=== PATIENT | female | born 1970 | race Caucasian/White ===

== ENCOUNTER 2019-09-16 07:54 | Observation (INO) | payer OTHER, SELFPAY ==
[2019-09-16] VITALS (24 sets, daily range): BP systolic 94–130; BP diastolic 55–85; PULSE 60–107; RESP 10–24; TEMP 36.2–37.1; O2SAT 93–100; BMI 23.3
--- NOTE | 2019-09-16 | PATH_ITS ---
[facility] Accession Number: [id number] . 01 Material submitted: . appendix - APPENDIX . 02 Diagnosis: Appendix, Appendectomy: Acute suppurative appendicitis with serositis. Negative for dysplasia and malignancy. [facility] 09/18/2019 1246 Local . 02 Electronically signed: . Mildred Hair MD, Pathologist NPI- [id number] . 01 Gross description: . Received in formalin, labeled appendix, is a piece of cecum (3.0 x 1.7 x 1.4 cm) with an attached intact appendix (length-5.2 cm, diameter-0.7 cm) with fischer-pink, smooth shiny serosa. The resection margin is received opened and has a staple line. The cecal mucosa is fischer with normal folds and is otherwise unremarkable. The mesoappendix (up to 1.9 cm in depth) is present. The lumen contains fischer solid-soft material. The appendiceal wall is up to 0.3 cm thick. No nodules, masses or lesion are identified. The resection margin is inked blue. Section code: (A1) cecum, agency sales representative serial section and appendiceal orifice; (A2, A3) agency sales representative serial sections; (A4) one-half of the bivalved tip. ([id number]) /MRV 09/17/2019 1520 Local . 02 Pathologist provided ICD-10: K35.80 . 02 CPT . 844041 Performed at: 01 [facility] [address] [id number] MD Tim Child MD Phone: [phone] Performed at: 02 [facility] [address] [place], [place] [id number] MD Mildred Hair MD Phone: [phone]
--- NOTE | 2019-09-16 07:58 | ED_ITS ---
HPI - General Adult General Chief complaint: Abdominal Pain Stated complaint: sharppain across midd stomach/ diarrhea Time Seen by Provider: 09/16/19 07:55 Source: patient Mode of arrival: Ambulatory Limitations: no limitations History of Present Illness HPI narrative: 49-year-old female. History of breast cancer. Last chemotherapy/radiation was greater than 2 months ago. States that yesterday she was at her normal state health other than feeling very tired and last evening developed nausea vomiting and diarrhea. Has had multiple episodes of each. Has generalized sharp abdominal pain that is not changed with the vomiting or diarrhea. No sick contacts. No recent antibiotics. No fevers. Has not tried anything for symptoms. States she is very nauseous. No urinary symptoms. Has had a hysterectomy and bilateral mastectomy. Left bedside does not have symptoms Related Data Home Medications Medication Instructions Recorded Confirmed fluoxetine 20 mg PO QDAY #0 02/21/16 levonorgestrel [Mirena] 52 mg INTRAU #0 02/21/16 magnesium chloride [Slow-Mag] 1 ect PO #0 02/21/16 multivitamin [Multiple Vitamins] 1 tab PO QDAY #0 02/21/16 tizanidine 4 mg PO PRN PRN #0 02/21/16 Previous Rx's Medication Instructions Recorded nitrofurantoin monohyd/m-cryst 100 mg PO BIDCC #10 cap 02/21/16 [Macrobid] Allergies Allergy/AdvReac Type Severity Reaction Status Date / Time No Known Allergies Allergy Uncoded 09/16/19 08:04 Review of Systems Constitutional Constitutional: Denies fever(s) Cardiovascular Cardiovascular: Denies chest pain Respiratory Respiratory: Denies cough Gastrointestinal Gastrointestinal: Reports abdominal pain, Reports diarrhea, Reports nausea and R eports vomiting Genitourinary Comments: No dysuria Musculoskeletal Musculoskeletal: Denies deformity Integumentary/Breasts Skin/Breast: Denies lesions and Denies rash Neurologic Neurologic: Denies behavioral changes Psychiatric Psychiatric: Denies behavioral changes Hematologic/Lymphatic Hematologic/Lymphatic: Denies easy bleeding and Denies easy bruising Patient History Medical History (Updated 09/16/19 @ 09:29 by Jaime Rosario DO) Breast cancer (Acute) Surgical History (Updated 09/16/19 @ 09:28 by Jaime Rosario DO) H/O bilateral mastectomy (Acute) Social History Smoking Status: Never smoker Exam Initial Vital Signs Initial Vital Signs: Vital Signs Temperature 97.2 F L 09/16/19 08:04 Pulse Rate 74 09/16/19 08:04 Respiratory Rate 16 09/16/19 08:04 Blood Pressure 130/85 09/16/19 08:04 Pulse Oximetry 98 09/16/19 08:04 Const General: cooperative and No comfortable (Uncomfortable) Limitations: mental status not altered HENTX Head: normal to inspection and normocephalic Chest Other: Bilateral mastectomy Resp Effort & Inspection: normal respiratory effort Auscultation: clear to auscultation bilaterally Cardio Rate: regular rate Rhythm: regular rhythm GI Inspection: non-distended Palpation: soft and tender (Right-sided upper right-sided lower abdomen tenderness) Skin Lesions: no lesions Rashes: no rashes Neuro General: patient alert, patient awake and patient oriented x3 Cognition: normal cognition Speech: speech normal Extrem General: normal to inspection and capillary refill normal Psych Appearance: grossly normal and well kempt Scores GCS [place] coma scale eye opening: Spontaneous [place] coma scale verbal response: Orientated [place] coma scale motor response: Obey commands Naye coma scale total score: 15 Course Orders Ordered: ED Orders 09/16/19 08:05 Complete Blood Count AUTO DIFF Stat Comprehensive Metabolic Panel Stat Lipase Stat 09/16/19 08:13 CT abdomen pelvis w con Stat 09/16/19 09:16 Urine Microscopic Stat Sodium Chloride (Normal Saline 0.9%) 1,000 mls @ 125 mls/hr IV CONT DC Piperacillin/Tazobactam/Dextrose (Zosyn) 3.375 gm in 50 mls @ 100 mls/hr IV NOW ONE Stop: 09/16/19 10:07 Last Admin: 09/16/19 09:52 Dose: 100 mls/hr Documented by: LÓPEZ Discontinued Medications Sodium Chloride (Normal Saline 0.9%) 1,000 mls @ 1,000 mls/hr IV BOLUS ONE Stop: 09/16/19 09:11 Last Admin: 09/16/19 08:25 Dose: 1,000 mls/hr Documented by: AUBREE Morphine Sulfate (Morphine) 4 mg IV NOW ONE Stop: 09/16/19 08:44 Last Admin: 09/16/19 08:54 Dose: 4 mg Documented by: LÓPEZ Ondansetron HCl (Zofran) 4 mg IV NOW ONE Stop: 09/16/19 08:13 Last Admin: 09/16/19 08:25 Dose: 4 mg Documented by: AUBREE Vital Signs Vital signs: Vital Signs - 8 hr 09/16/19 08:04 09/16/19 08:57 09/16/19 09:15 Temperature 97.2 F L Pulse Rate 74 87 87 Respiratory Rate 16 18 19 Blood Pressure 130/85 Blood Pressure [Right Arm] 123/81 111/68 Pulse Oximetry 98 98 97 Medical Decision Making Medical Records Medical records reviewed: Yes I reviewed the patient's medical records. Lab Data Lab results reviewed: Yes I reviewed the patient's lab results. Result diagrams: 09/16/19 08:05 09/16/19 08:05 Labs: Lab Results 09/16/19 09/16/19 09/16/19 Range/Units 08:05 08:05 09:16 WBC 12.3 H (4.5-11.0) X10^3/uL RBC 4.44 (4.0-5.2) X10^6/uL Hgb 14.2 (12.0-16.0) g/dL Hct 40.9 (36-46) % MCV 92.0 (80-100) fL MCH 31.9 (26-34) PG MCHC 34.7 (30-36) % RDW 14.7 (11.6-14.8) % Plt Count 211 (150-400) X10^3/uL Neut % (Auto) 91.6 H (50-75) % Lymph % (Auto) 2.9 L (25-40) % Crosby % (Auto) 5.3 (3-14) % Eos % (Auto) 0.0 L (2-4) % Baso % (Auto) 0.2 (0-2) % Neut # (Auto) 67898 H (6567-7712) /uL Lymph # (Auto) 400 L (9857-4622) /uL Crosby # (Auto) 600 (0-900) /uL Eos # (Auto) 0 (0-450) /uL Baso # (Auto) 0 (0-100) /uL Sodium 136 L (137-145) mmol/L Potassium 4.0 (3.4-5.1) mmol/L Chloride 102 (98-107) mmol/L Carbon Dioxide 19 L (22-32) mmol/L BUN 12 (7-17) mg/dL Creatinine 0.69 (0.52-1.04) mg/dL Estimated GFR > 60.0 (>60) mL/min BUN/Creatinine Ratio 17.4 (6-22) Glucose 151 H (70-100) mg/dL Calcium 10.1 (8.4-10.2) mg/dL Total Bilirubin 0.8 (0.2-1.3) mg/dL AST 26 (14-36) IU/L ALT 18 (<35) IU/L Alkaline Phosphatase 61 (38-126) U/L Total Protein 7.9 (6.3-8.2) g/dL Albumin 4.9 (3.5-5.0) g/dL Globulin 3.0 (1.7-4.1) g/dL Albumin/Globulin Ratio 1.6 (1.0-2.8) Lipase 56 (23-300) U/L Urine RBC 0-1/hpf (0-5/HPF) Urine WBC None seen (0-5/HPF) Urine Bacteria Few (2-10) H (None) Ur Culture Indicated? Cult not indicated Urine Dip Bedside Urine Glucose Negative Bedside Urine Bilirubin - Negative Bedside Urine Ketone ++ 40 Urine Specific Gilbert 1.010 Bedside Urine Occult Blood +/- Bedside Urine pH 8.0 Bedside Urine Protein +/- 15 Bedside Urine Urobilinogen - Negative Bedside Urine Nitrite - Negative Bedside Urine Leukocytes - Negative Esterase Point of care testing: Urine Dip Bedside Urine Glucose Negative Bedside Urine Bilirubin - Negative Bedside Urine Ketone ++ 40 Urine Specific Gilbert 1.010 Bedside Urine Occult Blood +/- Bedside Urine pH 8.0 Bedside Urine Protein +/- 15 Bedside Urine Urobilinogen - Negative Bedside Urine Nitrite - Negative Bedside Urine Leukocytes - Negative Esterase Imaging Data CT scan - abdomen/pelvis: Radiologist's Impression: [address] [address] [address] Scan Report Signed Patient: Antonia Cuevas [facility]#: [id number] : 1970Acct:[id number] Age/Sex: 49 / FDate of Service: 09/16/19 Loc: ED Accession Number: [id number] Procedure: CT abdomen pelvis w con Ordering Provider: Jaime Rosario D.O. PROCEDURE: CT ABDOMEN PELVIS W CON INDICATIONS: Right-sided abdominal pain TECHNIQUE: After the administration of intravenous contrast, 5 mm thick sections acquired f rom the diaphragm to the symphysis. 5 mm coronal and sagittal reformats were acquired. For radiation dose reduction, the following was used: automated exposure control, adjustment of mA and/or kV according to patient size. COMPARISON: None. FINDINGS: Image quality: Excellent. ABDOMEN: Lung bases: Lung bases are clear. Heart size is normal. Solid organs: Liver is normal in size and enhancement. Gallbladder appears normal. Biliary system is non dilated. Pancreas enhances normally. Spleen is normal in size and enhancement. No adrenal nodules. Kidneys demonstrate normal size and enhancement, without hydronephrosis. Peritoneum and bowel: Bowel loops demonstrate normal wall thickness and caliber. No free fluid or air. Nodes and vessels: No retroperitoneal or mesenteric adenopathy by size criteria. Aorta and inferior vena cava are normal in size. Miscellaneous: No ventral hernias. PELVIS: Genitourinary: Bladder wall thickness is normal. Miscellaneous: No inguinal hernias or adenopathy. Acute appendicitis right lower quadrant extending inferiorly from the cecal tip, without appendicolith or periappendiceal abscess. Bones: No suspicious bony lesions. No vertebral body compression fractures. IMPRESSION: Acute appendicitis right lower quadrant without sign of appendicolith or periappendiceal abscess formation. Findings immediately called to the emergency room physician caring for the patient. Dictated by: Valentin Combs M.D. on 09/16/2019 at 9:26 Approved by: Valentin Combs M.D. on 09/16/2019 at 9:28 [facility] Narrative Medical decision making narrative: Patient feels better after Zofran and pain medications. Has leukocytosis. CT scan shows acute appendicitis. Discussed the case with Dr. Pringle with general surgery who will come see the patient in the emergency department. Discussed the findings of the CT scan with the patient. She expressed understanding and agreement. Discharge Plan Departure Patient Disposition: Admitted as Observation Clinical Impression: Acute appendicitis Qualifiers: Acute appendicitis type: with localized peritonitis Appendicitis gangrene presence: without gangrene Appendicitis perforation presence: without perforation Appendicitis abscess presence: without abscess Qualified Code(s): K35.30 - Acute appendicitis with localized peritonitis, without perforation or gangrene Referrals: Mildred Martini MD [Primary Care Provider] - Admit Date/Time: 09/16/19 09:40 Admit Provider: Carol Ann Pringle
--- NOTE | 2019-09-16 08:13 | DI.CT.S_ITS ---
PROCEDURE: CT ABDOMEN PELVIS W CON INDICATIONS: Right-sided abdominal pain TECHNIQUE: After the administration of intravenous contrast, 5 mm thick sections acquired from the diaphragm to the symphysis. 5 mm coronal and sagittal reformats were acquired. For radiation dose reduction, the following was used: automated exposure control, adjustment of mA and/or kV according to patient size. COMPARISON: None. FINDINGS: Image quality: Excellent. ABDOMEN: Lung bases: Lung bases are clear. Heart size is normal. Solid organs: Liver is normal in size and enhancement. Gallbladder appears normal. Biliary system is non dilated. Pancreas enhances normally. Spleen is normal in size and enhancement. No adrenal nodules. Kidneys demonstrate normal size and enhancement, without hydronephrosis. Peritoneum and bowel: Bowel loops demonstrate normal wall thickness and caliber. No free fluid or air. Nodes and vessels: No retroperitoneal or mesenteric adenopathy by size criteria. Aorta and inferior vena cava are normal in size. Miscellaneous: No ventral hernias. PELVIS: Genitourinary: Bladder wall thickness is normal. Miscellaneous: No inguinal hernias or adenopathy. Acute appendicitis right lower quadrant extending inferiorly from the cecal tip, without appendicolith or periappendiceal abscess. Bones: No suspicious bony lesions. No vertebral body compression fractures. IMPRESSION: Acute appendicitis right lower quadrant without sign of appendicolith or periappendiceal abscess formation. Findings immediately called to the emergency room physician caring for the patient. Dictated by: Valentin Combs M.D. on 09/16/2019 at 9:26 Approved by: Valentin Combs M.D. on 09/16/2019 at 9:28
[2019-09-16 08:17] LABS: Add Manual Diff / Slide Review NO; Basophils Absolute Auto 0 /uL (0-100); Basophils Percent Auto 0.2 % (0-2); Eosinophils Absolute Auto 0 /uL (0-450); Hematocrit 40.9 % (36-46); Hemoglobin 14.2 g/dL (12.0-16.0); Lymphocytes Absolute Auto 400 /uL (1100-4500); Lymphocytes Percent Auto 2.9 % (25-40); Mean Corpuscular HGB Conc 34.7 % (30-36); Mean Corpuscular Hemoglobin 31.9 PG (26-34); Monocytes Absolute Auto 600 /uL (0-900); Monocytes Percent Auto 5.3 % (3-14); Neutrophils Absolute Auto 11300 /uL (1500-7000); Neutrophils Percent Auto 91.6 % (50-75); Platelet Count 211 X10^3/uL (150-400); Red Blood Cell Count 4.44 X10^6/uL (4.0-5.2); Red Cell Distribution Width 14.7 % (11.6-14.8); White Blood Cell Count 12.3 X10^3/uL (4.5-11.0)
[2019-09-16] MEDS: SODIUM CHLORIDE 0.9% 1,000 ML 1000 ML IV (08:25)
[2019-09-16] MEDS: ONDANSETRON 4 MG/2 ML INJ IV (08:25)
[2019-09-16 08:29] LABS: Alanine Aminotransferase 18 IU/L (<35); Albumin 4.9 g/dL (3.5-5.0); Albumin Globulin Ratio 1.6 (1.0-2.8); Alkaline Phosphatase 61 U/L (38-126); Aspartate Aminotransferase 26 IU/L (14-36); BUN Creatinine Ratio 17.4 (6-22); Bilirubin Total 0.8 mg/dL (0.2-1.3); Blood Urea Nitrogen 12 mg/dL (7-17); Calcium 10.1 mg/dL (8.4-10.2); Carbon Dioxide 19 mmol/L (22-32); Chloride 102 mmol/L (98-107); Estimated Glomerular Filt Rate > 60.0 mL/min (>60); Glucose 151 mg/dL (70-100); HEMOLYSIS < 15 (0-50); Lipase 56 U/L (23-300); Sodium 136 mmol/L (137-145); Total Protein 7.9 g/dL (6.3-8.2)
[2019-09-16] MEDS: MORPHINE 4 MG/ML INJ IV ×2 (08:54→14:08)
[2019-09-16 09:29] LABS: WBC Urine None Seen (0-5/HPF)
[2019-09-16 09:40] LABS: Bacteria Urine Few (2-10); Culture Indicated Urine Cult Not Indicated; RBC Urine 0-1/HPF (0-5/HPF)
[2019-09-16] MEDS: PIPERACILLIN-TAZO 3.375 GM/50 ML FROZ.PIGGY IV ×2 (09:52→15:37)
[2019-09-16] MEDS: SODIUM CHLORIDE 0.9% 1,000 ML 125 ML IV (10:17)
--- NOTE | 2019-09-16 10:59 | PC.NURSE ---
pt requested iv to be moved.
[2019-09-16 11:14] LABS: Pregnancy Test Serum,Qual Negative (Negative)
[2019-09-16 11:47] LABS: COVID19 -Nasal RAPID Negative (Negative)
--- NOTE | 2019-09-16 13:07 | P.HP_ITS ---
History of Present Illness History of Present Illness Date Patient Seen: 09/16/19 Time Patient Seen: 11:00 Chief complaint: sharp pain across mid stomach/ diarrhea Narrative: This is a 49-year-old woman with history of early stage breast cancer now status post bilateral mastectomy, chemotherapy and radiation treatment. Her last chemotherapy treatment was in May, her last radiation treatment was in August. Over the last 2 days she has felt not quite right. Last evening she started having focal right lower quadrant pain and nausea. She came in the ER this morning, and had a CT scan revealing an acute early appendicitis, and a white count of 12.3. Her pain and nausea currently controlled medication, and she has been given IV fluids. ROS Healing well from bilateral mastectomies. Thirteen system review is otherwise negative other than as mentioned below and in HPI. PE: GENERAL: Alert, comfortable. Appears stated age. Answers questions promptly a nd appropriately. Vital signs noted. HENT: Normocephalic, atraumatic. Hearing intact. Oral mucosa is pink and moist. EYES: Conjunctiva pink, sclera white, no periorbital swelling. CARDIOVASCULAR: Regular rate. No pedal edema. RESPIRATORY: Non-tachypneic, breathing comfortably on room air. GASTROINTESTINAL: Abdomen soft and non-distended, focal tenderness to palpation in the right lower quadrant. Neg Rovsing sign, no flank tenderness GENITALURINARY: No flank tenderness. MUSCULOSKELETAL: Equal tone and mass bilaterally. SKIN: Warm, dry, soft, appropriate color for ethnicity. No other lesions, rashes, or wounds. NEURO: Alert and Oriented X 3. No gross sensory deficits, or cognitive issues. PSYCH: Appropriate affect and mood. Patient History Medical History Breast cancer (Acute) Surgical History H/O bilateral mastectomy (Acute) Family & Social History Safety & Behavioral: Feels Safe in Current Yes Environment Been Physically Hurt or No Threatened By a Person Tobacco & Substance use: Smoking Status Never smoker Substance Use Type does not use Meds Home Medications and Allergies Home Medications Medication Instructions Recorded Confirmed Type fluoxetine 20 mg PO QDAY #0 02/21/16 History levonorgestrel [Mirena] 52 mg INTRAU #0 02/21/16 History magnesium chloride [Slow-Mag] 1 ect PO #0 02/21/16 History nitrofurantoin monohyd/m-cryst 100 mg PO BIDCC #10 cap 02/21/16 Rx [Macrobid] tizanidine 4 mg PO PRN PRN #0 02/21/16 History Allergies Allergy/AdvReac Type Severity Reaction Status Date / Time No Known Allergies Allergy Verified 09/16/19 13:08 Exam Vital Signs (past 8 hours): - 09/16/19 08:04 09/16/19 08:57 09/16/19 09:15 Temperature 97.2 F L Pulse Rate 74 87 87 Respiratory Rate 16 18 19 Blood Pressure 130/85 Blood Pressure [Right Arm] 123/81 111/68 Pulse Oximetry 98 98 97 09/16/19 10:00 09/16/19 10:30 09/16/19 11:10 Temperature Pulse Rate 69 66 66 Respiratory Rate 21 12 16 Blood Pressure Blood Pressure [Right Arm] 103/66 94/55 L 97/58 L Pulse Oximetry 95 96 97 09/16/19 11:30 09/16/19 12:30 Temperature Pulse Rate 65 66 Respiratory Rate 22 14 Blood Pressure Blood Pressure [Right Arm] 97/55 L 99/56 L Pulse Oximetry 96 93 Oxygen Delivery Method Room Air Objective Imaging CT scan - abdomen: Radiologist's impression: Early acute appendicitis Labs Result Diagrams: 09/16/19 08:05 09/16/19 08:05 Labs: Laboratory Results - last 24 hr 09/16/19 09/16/19 09/16/19 08:05 08:05 08:05 WBC 12.3 H RBC 4.44 Hgb 14.2 Hct 40.9 MCV 92.0 MCH 31.9 MCHC 34.7 RDW 14.7 Plt Count 211 Neut % (Auto) 91.6 H Lymph % (Auto) 2.9 L [place] % (Auto) 5.3 Eos % (Auto) 0.0 L Baso % (Auto) 0.2 Neut # (Auto) 19281 H Lymph # (Auto) 400 L [place] # (Auto) 600 Eos # (Auto) 0 Baso # (Auto) 0 Sodium 136 L Potassium 4.0 Chloride 102 Carbon Dioxide 19 L BUN 12 Creatinine 0.69 Estimated GFR > 60.0 BUN/Creatinine Ratio 17.4 Glucose 151 H Calcium 10.1 Total Bilirubin 0.8 AST 26 ALT 18 Alkaline Phosphatase 61 Total Protein 7.9 Albumin 4.9 Globulin 3.0 Albumin/Globulin Ratio 1.6 Lipase 56 Serum , Qual Negative Urine RBC Urine WBC Urine Bacteria Ur Culture Indicated? COVID-19 PCR 09/16/19 09/16/19 09:16 09:40 WBC RBC Hgb Hct MCV MCH MCHC RDW Plt Count Neut % (Auto) Lymph % (Auto) [place] % (Auto) Eos % (Auto) Baso % (Auto) Neut # (Auto) Lymph # (Auto) [place] # (Auto) Eos # (Auto) Baso # (Auto) Sodium Potassium Chloride Carbon Dioxide BUN Creatinine Estimated GFR BUN/Creatinine Ratio Glucose Calcium Total Bilirubin AST ALT Alkaline Phosphatase Total Protein Albumin Globulin Albumin/Globulin Ratio Lipase Serum , Qual Urine RBC 0-1/hpf Urine WBC None seen Urine Bacteria Few (2-10) H Ur Culture Indicated? Cult not indicated COVID-19 PCR Negative Assessment & Plan Assessment and plan (1) Acute appendicitis: Qualifiers: Acute appendicitis type: with localized peritonitis Appendicitis abscess presence: without abscess Appendicitis gangrene presence: without gangrene Appendicitis perforation presence: without perforation Qualified Code(s): K35.30 - Acute appendicitis with localized peritonitis, without perforation or gangrene Status: Acute (2) Breast cancer: Status: Acute Assessment & Plan narrative: This is a 49-year-old woman with recent history of bilateral mastectomy for breast cancer, followed by chemotherapy and radiation treatment ending last month. She comes in today with acute appendicitis proven on CT scan and consistent with exam and lab findings. Risks and benefits of laparoscopic possible open appendectomy were discussed with the patient her corine nce. Risks of bleeding, infection, damage to nearby structures, need for additional procedures, abscess formation, bowel obstruction, hernia, risks of anesthesia were discussed with the patient who desires to proceed with surgery. Plan: COVID-19 test NPO, IV fluids, IV Zosyn Schedule for emergency surgery this afternoon, laparoscopic possible open appendectomy COVID-19 COVID-19 status: Negative Time Spent With Patient Time with patient: 25 - 35 minutes Quality VTE Deep Vein Thrombosis/Pulmonary Embolism Present on Admission: No
--- NOTE | 2019-09-16 13:39 | PC.ADMIT ---
[email or web address] Admission Note: The patient,Antonia Cuevas,49 y/o, was given written information regarding hospital policies, unit procedures and contact persons. Patient's smoking status: Never smoker. Into room from ER via w/c. Able to stand and walk to bed, NPO, reviewed POC and surgery for later today with dr Pringle. and bedside. Pt is hopeful to d/c post op. Vital Signs - 8 hr 09/16/19 08:04 09/16/19 08:57 09/16/19 09:15 Temperature 97.2 F L Pulse Rate 74 87 87 Respiratory Rate 16 18 19 Blood Pressure 130/85 Blood Pressure [Right Arm] 123/81 111/68 Pulse Oximetry 98 98 97 09/16/19 10:00 09/16/19 10:30 09/16/19 11:10 Temperature Pulse Rate 69 66 66 Respiratory Rate 21 12 16 Blood Pressure Blood Pressure [Right Arm] 103/66 94/55 L 97/58 L Pulse Oximetry 95 96 97 09/16/19 11:30 09/16/19 12:30 09/16/19 13:36 Temperature 97.6 F Pulse Rate 65 66 63 Respiratory Rate 22 14 18 Blood Pressure 103/63 Blood Pressure [Right Arm] 97/55 L 99/56 L Pulse Oximetry 96 93 98
--- NOTE | 2019-09-16 15:17 | PC.NURSE ---
Patient to floor a little after 1300. Given Morphine 4mg iv around 1430 and helpful. Pain to r.lower quadrant. Steady on feet. IVF NS at 125cc/hr. Down to surgery at 1500.
[2019-09-16] MEDS: LACTATED RINGERS 1,000 ML 42 ML IV (15:30)
--- NOTE | 2019-09-16 16:01 | SUR.OPER ---
Supine on padded OR bed, head on pillow, arm padded and left arm tucked at side, right arm secured on padded armboard, legs uncrossed, safety belt at thigh, tape over blanket over lower legs .
[2019-09-16] MEDS: BUPIVACAINE 0.25% W/ EPI 30 ML VIAL INJ (16:09)
--- NOTE | 2019-09-16 16:54 | PM.OP.1 ---
Operative Date/Time/Diagnoses Date of procedure: 09/16/19 Time of procedure: 16:54 Pre-op diagnosis: acute appendicitis Post-op diagnosis: other (acute appendicitis, thickened cecum) Procedure & Clinicians Procedure: Laparoscopic appendectomy with resection of cuff of cecum Same procedure as scheduled: Yes Indications: Acute appendicitis Surgeon: Carol Ann Pringle Click Yes if Unassisted: Yes Anesthesia Type: General Operative Notes Findings: Acute appendicits with thickened cecum Specimen(s): other (appendix with cuff of cecum) Estimated Blood Loss (mL): 1 Procedure in detail: Procedure in detail: The patient was brought into the operating room and placed supine on the OR table. Sequential compression devices were placed on both legs and turned on. Appropriate perioperative antibiotics were given prior to the start of surgery. General anesthesia was induced the patient was intubated. Peterson catheter was placed sterilely in the bladdder. The abdomen was prepped and draped in sterile fashion. Surgical time-out was conducted. Local anesthetic was injected under the skin just superior to the umbilicus and a 5 mm vertical incision was made at this site. The umbilical stalk was grasped with a Cris and elevated. A Veress needle was passed through the fascia into proper position. The position was tested with a saline drop test which was appropriate for intra-abdominal Veress needle placement. The abdomen was then insufflated in the usual fashion. Once insufflated to 15 mm Hg the Veress needle was removed and a 5 mm optical trocar was placed under direct vision using a 5 mm 30 degree scope. Once the camera was inside the abdomen I took a look around. There was no injury from port placement. Two additional ports were placed in a similar fashion in the supra umbilical midline and left mid abdomen. The umbilical port was upsized to a 12mm port. Some murky fluid was seen in the pelvis. It was suctioned clean. The appendix was seen curled on top of the appendix. The patient was positioned in Trendelenberg with the right side up. I grasped the appendix and divided the mesoappendix with Ligasure. I dissected up to the base of the cecum. At the base of the appendix the cecum was thickened. A 55mm blue load endo NEMESIO stapler was then used to divide the cecum distal to the thickened cecum. There was good hemostasis at the staple line. The appendix and cuff of cecum were placed in an endocatch bag and removed through the umbilical port. The staple line was examined and good hemostasis was seen. The ileum and cecum were intact and in good position. The umbilical port site was then closed with O Vicryl suture using a Daniel Lena device. At this point the insufflation was removed from the abdomen and the umbilical port was closed with 3-O Vicryl in the subcutaneous layers, and 4 Monocryl in the skin. The remaining port sites were closed with 4 Monocryl in the skin. Each port site was sealed with dermabond. Local anesthetic was given at each of the port sites and in the fascia. This concluded the procedure. At this point the needle sponge and instrument counts were correct x 2. The appendix was passed off the table for pathology. Patient was awakened from anesthesia and extubated. She was transferred to the postanesthesia care unit in stable condition. Complications: none Post-operative Condition: stable Disposition: PACU
[2019-09-16] MEDS: MEPERIDINE 100 MG/ML INJ 25 MG IV (17:25)
--- NOTE | 2019-09-16 19:52 | PC.NURSE ---
Addendum entered by Patty Esteves R.N. 09/16/19 20:20: pt sat went up to 96-99% on RA. medicated with oxycodone 5mg before she left for pain 08/22. notified physician regarding patient's status. provider ok for pt to discharge. discharge instruction provided. all belongings returned to patient. med script with patient. Original Note: pt ambulated in hallways. 92-95%RA. denied pain. cont pulse ox on. abd slightly distended. lap sites cdi. pt tolerated clear liquid diet. call light in reach.
[2019-09-16] MEDS: OXYCODONE IR 5 MG TABLET PO (20:08)
== END 2019-09-16 20:20 | disposition home or self-care (01) ==
LOC: ED 09:29 → AC 09:46
PROVIDERS: Admitting Provider Surgery; Emergency Provider Emergency Medicine; PCP Family Medicine; Visit Provider Surgery
PROC: 0DTJ4ZZ Resection of Appendix, Percutaneous Endoscopic Approach (ICD-10-PCS; CPT 44970; principal; 2019-09-16 15:45)
DX: K35.30 Acute appendicitis with localized peritonitis, without perforation or gangrene (principal); R10.9 Unspecified abdominal pain; C50.919 Malignant neoplasm of unspecified site of unspecified female breast; Z11.59 Encounter for screening for other viral diseases
CPT/HCPCS: 44970; 36415; 74177; 80053; 81003; 81015; 83690; 84703; 85025; 87635; 96361; 96365; 96375; 96376; 99218; 99285; G0378; J1100; J1885; J2175; J2250; J2270; J2405; J2543; J2704; J3010; Q9967